=== PATIENT | male | born 1965 | race Caucasian/White ===

== ENCOUNTER 2018-09-05 06:52 | Day surgery (SDC) | payer BC ==
[~2018-09-05 06:52] MED LIST: Dextrose 5%-0.45% NaCl 1,000 ML IV SCH; Midazolam 1 MG/ML 2 ML SDV ONE; Sodium Chloride 0.9% 10 ML Syringe FLUSH PRN; fentaNYL 100 MCG/2 ML SDV ONE
[2018-09-05] MEDS ORDERED: fentaNYL 100 MCG/2 ML SDV IV ONE ×3 (06:53→08:05)
[2018-09-05] MEDS ORDERED: Midazolam 1 MG/ML 2 ML SDV IV ONE ×3 (06:53→08:06)
--- NOTE | 2018-09-05 09:27 | OR ---
DATE: 09/05/2018 PROCEDURE PERFORMED: Esophagogastroduodenoscopy, NBI, and multiple pinch biopsies. INSTRUMENT USED: GIF-HQ190 Olympus video panendoscope. PREMEDICATIONS: No oral or topical anesthesia used. Fentanyl 100 mcg intravenous, Versed 2 mg intravenous, nasal O2 cannula. The procedure was done under pulse oximetry, BP recording, and registered nurse cardiac. INDICATION: The patient with unexplained iron deficiency anemia. Esophagogastroduodenoscopy is performed for detection of any active erosive lesions, Álvarez esophagus and/or malignancy also under consideration, H. pylori status to be determined, small bowel biopsies to be obtained for any evidence of celiac disease, endoscopic hemostasis therapy if needed. DESCRIPTION OF PROCEDURE: The scope was passed with ease. Adequate visualization of the esophagus was made from proximal to distal areas. No upper esophageal lesions identified. No distal esophageal stricture. No uphill or downhill esophageal varices. No Ryann-Hickman tear. Grade D erosive changes were noted by Drake criteria. No esophageal polyp or tumor mass identified. Z-line was seen at around 40 cm distal to the oral verge. No proximal gastric varices noted. Gastric fundus examination by retroflexion showed no polypoid lesions. There was moderate amount of solid food material present, limiting visualization of some of the areas of the gastric mucosa. No gastric ulcer, malignant mass, or vascular ectasia identified. Duodenal bulb showed no ulcer. Visualized second part of the duodenum was unremarkable. Multiple pinch biopsies, 4 in number, were taken from different areas of the second part of the duodenum and tissues were also obtained from the duodenal bulb at 9 and 12 o'clock positions, and sent for any histopathologic evidence of celiac disease. Multiple pinch biopsies were also taken from the gastric antrum and proximal body, and sent for PyloriTek test for H. pylori and histopathology. NBI views were obtained of the esophagus. No bleeding was noted from any of the visualized areas at the completion of the examination. Photographs were taken of the duodenal bulb, gastric antrum, fundus, and distal esophagus. IMPRESSION: 1. Grade D gastroesophageal reflux disease. 2. Gastroparesis diabeticorum. The patient tolerated the procedure well. [facility] /[id number]
--- NOTE | 2018-09-05 09:27 | LETTER ---
09/05/2018 Mee Gonzalez MD [address] [address] RE: ANEUDY ESCAMILLA : [address] Gonzalez: Mr. Aneudy Escamilla had esophagogastroduodenoscopy done this morning and he tolerated the procedure well. I herewith send a copy of the endoscopy note and photographs for your review. Thank you. Sincerely, [facility] /[id number]
== END 2018-09-05 10:23 | disposition home or self-care (01) ==
LOC: DL.ENDO 06:52
PROVIDERS: ATTEND Internal Medicine Gastroenterology
DX: K29.50 Unspecified chronic gastritis without bleeding (principal); E11.43 Type 2 diabetes mellitus with diabetic autonomic (poly)neuropathy; K31.84 Gastroparesis; A07.1 Giardiasis [lambliasis]; K21.9 Gastro-esophageal reflux disease without esophagitis; F17.210 Nicotine dependence, cigarettes, uncomplicated; D50.9 Iron deficiency anemia, unspecified; M54.5 Low back pain; E78.5 Hyperlipidemia, unspecified; I10 Essential (primary) hypertension; E66.09 Other obesity due to excess calories; Z68.31 Body mass index [BMI] 31.0-31.9, adult; Z88.5 Allergy status to narcotic agent; Z79.84 Long term (current) use of oral hypoglycemic drugs; Z79.82 Long term (current) use of aspirin; Z79.899 Other long term (current) drug therapy
CPT/HCPCS: 43239; 87077; J2250; J3010; J7042

== ENCOUNTER 2019-02-27 07:47 | Day surgery (SDC) | payer BC ==
[2019-02-27] MEDS ORDERED: Lidocaine 1% with EPINEPHrine 1:100,000 20 ML MDV ONE ×2 (07:48→10:19)
[2019-02-27] MEDS ORDERED: Propofol 200 MG/20 ML SDV IV ONE (07:48)
[2019-02-27] MEDS ORDERED: Ketorolac 30 MG/ML SDV IVPUSH ONE (07:48)
[2019-02-27] MEDS ORDERED: Midazolam 1 MG/ML 2 ML SDV IV ONE (07:48)
[2019-02-27] MEDS ORDERED: fentaNYL 100 MCG/2 ML SDV IV ONE (07:48)
[2019-02-27] MEDS ORDERED: Dexamethasone 4 MG/ML SDV IV ONE (07:48)
[2019-02-27] MEDS ORDERED: Lactated Ringers 1,000 ML IV SCH (08:30)
[2019-02-27] MEDS ORDERED: Lidocaine 1% with EPINEPHrine 1:100,000 30 ML MDV INJECT ONE ×2 (10:42→10:59)
--- NOTE | 2019-02-27 18:27 | OR ---
DATE: 02/27/2019 PREOPERATIVE DIAGNOSIS: Right groin mass and penile lesion. POSTOPERATIVE DIAGNOSIS: Right groin mass and penile lesion. PROCEDURE: Wide local excision of right groin mass and a penile lesion. Right groin mass measured 3 x 2.5 cm and a smaller one next to it measured 1 x 1 cm. These were both elliptically incised in the same incision which measured 8 cm long by 3 cm wide to incorporate both of these lesions. The penile lesion was 1 x 1 cm. This was simply cauterized off the base. ANESTHESIA: Local MAC. SPECIMEN: Right groin lesion and penile lesion. INDICATION FOR PROCEDURE: This 53-year-old male has a recurrent large lesion in the right groin. 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 It measures 3 x 2.5 cm and then one that is about a centimeter or two away that measures 1 x 1 cm. The local was used to infiltrate an area around this and an elliptical incision was made and carried down full thickness through the skin and the subcutaneous tissue. Cautery was used for hemostasis and the wound was closed using a deep layer of 3-0 Vicryl dermal layer to provide support for the closure and a 4-0 Vicryl for the skin. The patient also has a lesion on the left side of the penis. This was elevated and cauterized off the base. The remaining defect in the skin was simply closed with 1 interrupted 4-0 Monocryl suture. The wounds were sterilely dressed, and the patient was taken to recovery room. [facility] /[id number]
== END 2019-02-27 12:45 | disposition home or self-care (01) ==
LOC: DL.SDS 07:47
PROVIDERS: ATTEND Surgery
DX: A63.0 Anogenital (venereal) warts (principal); E78.5 Hyperlipidemia, unspecified; K21.9 Gastro-esophageal reflux disease without esophagitis; I12.9 Hypertensive chronic kidney disease with stage 1 through stage 4 chronic kidney disease, or unspecified chronic kidney disease; E11.22 Type 2 diabetes mellitus with diabetic chronic kidney disease; N18.9 Chronic kidney disease, unspecified; F17.210 Nicotine dependence, cigarettes, uncomplicated; E66.9 Obesity, unspecified; Z68.31 Body mass index [BMI] 31.0-31.9, adult; Z79.84 Long term (current) use of oral hypoglycemic drugs; Z79.899 Other long term (current) drug therapy
CPT/HCPCS: 17110; 54057; J1100; J1885; J2250; J2704; J3010; J7120

== ENCOUNTER 2023-02-23 10:07 | Emergency (ER) | payer BC ==
[2023-02-23] MEDS ORDERED: Lidocaine 1% with EPINEPHrine 1:100,000 20 ML MDV INJECT ONE (10:21)
[2023-02-23] MEDS ORDERED: Bacitracin Oint 1 GM U/D Packet TOP ONE (10:53)
[2023-02-23] MEDS ORDERED: Bacitracin Oint 1 GM U/D Packet ONE (10:53)
== END 2023-02-23 10:59 | disposition home or self-care (01) ==
LOC: DL.ED 10:07
DX: S81.812A Laceration without foreign body, left lower leg, initial encounter (principal); I10 Essential (primary) hypertension; E78.00 Pure hypercholesterolemia, unspecified; F17.210 Nicotine dependence, cigarettes, uncomplicated; K21.9 Gastro-esophageal reflux disease without esophagitis; E11.9 Type 2 diabetes mellitus without complications; E66.9 Obesity, unspecified; Z68.33 Body mass index [BMI] 33.0-33.9, adult; Z88.5 Allergy status to narcotic agent; Z79.84 Long term (current) use of oral hypoglycemic drugs; Z79.899 Other long term (current) drug therapy; W26.8XXA Contact with other sharp object(s), not elsewhere classified, initial encounter; Y92.513 Shop (commercial) as the place of occurrence of the external cause
CPT/HCPCS: 12002; 99282; 99283; A9270-GY; J3490

== ENCOUNTER 2024-04-03 10:27 | Emergency (ER) | payer BC ==
[2024-04-03 10:38] LABS: BASOPHILS PERCENT AUTO 0.8 % (0.0-1.0); EOSINOPHILS PERCENT AUTO 3.1 % (1.0-3.0); HEMOGLOBIN 12.3 g/dL (14.0-18.0); LYMPHOCYTES PERCENT AUTO 11.5 % (20.5-50.1); MEAN CORPUSCULAR HEMOGLOBIN 29.4 pg (27.0-34.0); MEAN CORPUSCULAR HGB CONC 33.2 g/dL (33.0-35.0); MEAN CORPUSCULAR VOLUME 88.3 fL (80-100); NEUTROPHILS PERCENT AUTO 79.6 % (42.2-75.2); PLATELET COUNT,PLT 265 10^3/uL (150-450); RED BLOOD CELL COUNT 4.19 10^6/uL (4.6-6.2); WHITE BLOOD CELL COUNT,WBC 10.7 10^3/uL (5.0-10.0)
[2024-04-03 10:58] LABS: A/G RATIO 1.1; ALANINE AMINOTRANSFERASE,ALT 25 U/L (16-63); ALBUMIN 3.5 g/dL (3.4-5.0); ALKALINE PHOSPHATASE 39 U/L (46-116); ANION GAP 13.5 mEq/L (7-13); ASPARTATE AMNIOTRANSFERASE,AST 49 U/L (15-37); BILIRUBIN DIRECT 0.1 mg/dL (0.0-0.2); BILIRUBIN INDIRECT 0.2; BILIRUBIN TOTAL 0.3 mg/dL (0.2-1.0); BLOOD UREA NITROGEN,BUN 12 mg/dL (7-18); CALCIUM 9.4 mg/dL (8.5-10.1); CARBON DIOXIDE,CO2 28 mmol/L (21-32); CHLORIDE,CL 98 mmol/L (98-107); CREATININE 1.61 mg/dL (0.70-1.30); ESTIMATED GFR 50 mL/min (>=60); GLUCOSE RANDOM 142 mg/dL (70-99); POTASSIUM,K 4.5 mmol/L (3.5-5.1); PROTEIN TOTAL,TP 6.7 g/dL (6.4-8.2); SODIUM,NA 135 mmol/L (136-145)
[2024-04-03] MEDS: Tenecteplase 50 MG Kit IVPUSH ONE (11:48)
[2024-04-03 12:19] LABS: APPEARANCE,URINE CLEAR (CLEAR); BILIRUBIN,URINE NEGATIVE (NEGATIVE); COLOR,URINE YELLOW (YELLOW); GLUCOSE,URINE NEGATIVE (NEGATIVE); KETONES,URINE NEGATIVE (NEGATIVE); LEUKOCYTE ESTERASE,URINE NEGATIVE (NEGATIVE); NITRITE,URINE NEGATIVE (NEGATIVE); OCCULT BLOOD,URINE NEGATIVE (NEGATIVE); PROTEIN,URINE 100 (NEGATIVE); UROBILINOGEN,URINE 0.2 mg/dL (0.2-1.0)
[2024-04-03 12:36] LABS: BACTERIA,URINE FEW /HPF (0-FEW/HPF); EPITHELIAL CELLS,URINE RARE /HPF (NOT SEEN); MUCUS,URINE FEW /LPF (NOT SEEN); RBC,URINE 0-5 /HPF (0-5); WBC,URINE 0-5 /HPF (0-5/HPF)
[2024-04-03] MEDS: 50% Dextrose in Water 50 ML Syringe IVPUSH ONE (13:11)
== END 2024-04-03 14:30 ==
LOC: DL.ED 10:27
DX: I69.392 Facial weakness following cerebral infarction (principal); I12.9 Hypertensive chronic kidney disease with stage 1 through stage 4 chronic kidney disease, or unspecified chronic kidney disease; N18.9 Chronic kidney disease, unspecified; E78.00 Pure hypercholesterolemia, unspecified; K21.9 Gastro-esophageal reflux disease without esophagitis; E11.22 Type 2 diabetes mellitus with diabetic chronic kidney disease; E66.9 Obesity, unspecified; Z68.30 Body mass index [BMI] 30.0-30.9, adult; Z88.5 Allergy status to narcotic agent; Z79.84 Long term (current) use of oral hypoglycemic drugs; Z79.899 Other long term (current) drug therapy
CPT/HCPCS: 36415; 37195; 70450; 70496; 71045; 80048; 80076; 81001; 82947; 84484; 85025; 87040; 93005; 96374; 99285; J3101

== ENCOUNTER 2024-06-03 09:24 | Emergency (ER) | payer BC ==
[2024-06-03 09:44] LABS: BASOPHILS PERCENT AUTO 0.4 % (0.0-1.0); EOSINOPHILS PERCENT AUTO 2.7 % (1.0-3.0); HEMATOCRIT 38.1 % (40.0-54.0); HEMOGLOBIN 12.6 g/dL (14.0-18.0); LYMPHOCYTES PERCENT AUTO 9.8 % (20.5-50.1); MEAN CORPUSCULAR HEMOGLOBIN 29.2 pg (27.0-34.0); MEAN CORPUSCULAR HGB CONC 33.1 g/dL (33.0-35.0); MEAN CORPUSCULAR VOLUME 88.2 fL (80-100); MONOCYTES PERCENT AUTO 5.8 % (2-8); NEUTROPHILS PERCENT AUTO 81.3 % (42.2-75.2); PLATELET COUNT,PLT 220 10^3/uL (150-450); RED BLOOD CELL COUNT 4.32 10^6/uL (4.6-6.2); WHITE BLOOD CELL COUNT,WBC 10.8 10^3/uL (5.0-10.0)
[2024-06-03 10:21] LABS: A/G RATIO 1.3; ALBUMIN 3.9 g/dL (3.4-5.0); ANION GAP 12.6 mEq/L (7-13); BILIRUBIN TOTAL 0.6 mg/dL (0.2-1.0); BUN/CREATININE RATIO 5.7 (No establ ref range); CALCIUM 9.9 mg/dL (8.5-10.1); CREATININE 2.12 mg/dL (0.70-1.30); EST CRCL DRUG DOSING (CG) 36.75 mL/min; POTASSIUM,K 4.6 mmol/L (3.5-5.1)
[2024-06-03 10:27] LABS: INR 1.1 (0.9-1.2)
[2024-06-03] MEDS: Metoclopramide 10 MG/2 ML SDV IVPUSH ONE (10:27)
[2024-06-03] MEDS: diphenhydrAMINE 50 MG/ML SDV IVPUSH ONE (10:27)
[2024-06-03] MEDS: Lactated Ringers 1,000 ML IV SCH (10:57)
== END 2024-06-03 13:09 | disposition home or self-care (01) ==
LOC: DL.ED 09:24
DX: E86.0 Dehydration (principal); I12.9 Hypertensive chronic kidney disease with stage 1 through stage 4 chronic kidney disease, or unspecified chronic kidney disease; N18.32 Chronic kidney disease, stage 3b; N17.9 Acute kidney failure, unspecified; E78.00 Pure hypercholesterolemia, unspecified; K21.9 Gastro-esophageal reflux disease without esophagitis; E11.22 Type 2 diabetes mellitus with diabetic chronic kidney disease; Z88.5 Allergy status to narcotic agent; Z79.899 Other long term (current) drug therapy; Z79.84 Long term (current) use of oral hypoglycemic drugs
CPT/HCPCS: 36415; 70450; 71046; 80053; 82947; 83735; 84484; 85025; 85610; 87428; 93005; 93010; 96361; 96374; 96375; 99284; 99285; J1200; J2765; J7120